=== PATIENT | female | born 1955 | race Caucasian/White ===

== ENCOUNTER 2018-05-22 18:52 | Emergency (ER) | payer SELFPAY ==
[~2018-05-22] VITALS: Ht 152.4 cm; Wt 65.8 kg
[2018-05-22 19:00] VITALS: BP 138/83; Ht 152.4 cm; Wt 65.8 kg
== END 2018-05-22 20:33 | disposition home or self-care (01) ==
LOC: ED 18:52
DX: L60.0 Ingrowing nail (principal); I10 Essential (primary) hypertension; E78.00 Pure hypercholesterolemia, unspecified
CPT/HCPCS: J2001